=== PATIENT | male | born 2000 | race American Indian/Alaskan Native ===

== ENCOUNTER 2018-02-18 13:03 | Emergency (ER) | payer SELFPAY ==
--- NOTE | 2018-02-18 13:54 | Emergency Department Report ---
ED ENT HPI - General Chief complaint: Earache Stated complaint: EAR PAIN Time Seen by Provider: 02/18/18 13:42 Source: patient Mode of arrival: Ambulatory Limitations: No Limitations - History of Present Illness Initial comments: This is a 17-year-old male brought by mother nontoxic, well nourished in appearance, no acute signs of distress presents to the ED with c/o of left earache x3 weeks. Patient denies any ear drainage. Patient denies any trauma to the area. Patient denies any mastoid tenderness or tragus tenderness. Patient denies hearing decrease or hearing changes. Patient denies any fever, chills, nausea, vomiting, chest pain, short of breath, headache or stiff neck. Patient denies any drug allergies or significant past medical history. MD complaint: ear pain -: week(s) (3) Location: L ear Severity: mild Severity scale (0 -10): 8 Quality: aching Consistency: constant Improves with: none Worsens with: none Associated Symptoms: denies: fever, cough, gum swelling, toothache, pain with swallowing, sore throat, tinnitus, hearing loss, discharge from ear, rhinorrhea - Related Data Previous Rx's Medication Instructions Recorded Last Taken Type Amoxicillin [Amoxicillin TAB] 875 mg PO BID #20 tablet 02/18/18 Unknown Rx ED Dental HPI - General Chief complaint: Earache Stated complaint: EAR PAIN Time Seen by Provider: 02/18/18 13:42 Source: patient Mode of arrival: Ambulatory Limitations: No Limitations - Related Data Previous Rx's Medication Instructions Recorded Last Taken Type Amoxicillin [Amoxicillin TAB] 875 mg PO BID #20 tablet 02/18/18 Unknown Rx ED Review of Systems ROS: Stated complaint: EAR PAIN Other details as noted in HPI Constitutional: denies: chills, fever Eyes: denies: eye pain, eye discharge, vision change ENT: ear pain. denies: throat pain Respiratory: denies: cough, shortness of breath, wheezing Cardiovascular: denies: chest pain, palpitations Endocrine: no symptoms reported Gastrointestinal: denies: abdominal pain, nausea, diarrhea Genitourinary: denies: urgency, dysuria Musculoskeletal: denies: back pain, joint swelling, arthralgia Skin: denies: rash, lesions Neurological: denies: headache, weakness, paresthesias Psychiatric: denies: anxiety, depression Hematological/Lymphatic: denies: easy bleeding, easy bruising ED Past Medical Hx - Past Medical History Previous Medical History?: No - Surgical History Past Surgical History?: No - Social History Smoking Status: Never Smoker Substance Use Type: None - Medications Home Medications: Home Medications Medication Instructions Recorded Confirmed Last Taken Type Amoxicillin [Amoxicillin TAB] 875 mg PO BID #20 tablet 02/18/18 Unknown Rx ED Physical Exam - General Limitations: No Limitations General appearance: alert, in no apparent distress - Head Head exam: Present: atraumatic, normocephalic - Expanded ENT Exam Expanded Ear exam: Present: normal external inspection TM/Canal exam: Erythema: Left TM, Bulging: Left TM Mouth exam: Present: normal external inspection Teeth exam: Present: normal inspection Throat exam: Positive: normal inspection - Neck Neck exam: Present: normal inspection, full ROM. Absent: tenderness, meningismus, lymphadenopathy - Extremities Exam Extremities exam: Present: normal inspection, full ROM - Back Exam Back exam: Present: normal inspection, full ROM - Neurological Exam Neurological exam: Present: alert, oriented X3 - Psychiatric Psychiatric exam: Present: normal affect, normal mood - Skin Skin exam: Present: warm, dry, intact, normal color. Absent: rash ED Course Vital Signs 02/18/18 13:28 Temperature 98.6 F Pulse Rate 49 L Respiratory 16 Rate Blood Pressure 129/61 O2 Sat by Pulse 98 Oximetry - Reevaluation(s) Reevaluation #1: 02/18/18 13:52 Patient is speaking in full sentences with no signs of distress noted. Critical care attestation.: If time is entered above; I have spent that time in minutes in the direct care of this critically ill patient, excluding procedure time. ED Disposition Clinical Impression: Left otitis media Qualifiers: Otitis media type: unspecified Qualified Code(s): H66.92 - Otitis media, unspecified, left ear Disposition: DC-01 TO HOME OR SELFCARE Is pt being admited?: No Does the pt Need Aspirin: No Condition: Stable Instructions: Otitis Media (ED) Additional Instructions: Follow-up with a primary care doctor in 3-5 days or if symptoms worsen and continue return to emergency room as soon as possible. Prescriptions: Amoxicillin [Amoxicillin TAB] 875 mg PO BID #20 tablet Referrals: JESSICA BENNETT MD [Primary Care Provider] - 3-5 Days PARMINDER VEGA MD [Staff Physician] - 3-5 Days [facility] [Outside] - 3-5 Days [facility] [Outside] - 3-5 Days Forms: Work/School Release Form(ED)
== END 2018-02-18 14:26 | disposition home or self-care (01) ==
LOC: ED 13:03
DX: H66.92 Otitis media, unspecified, left ear (principal)
CPT/HCPCS: 99282

== ENCOUNTER 2018-10-26 12:45 | Emergency (ER) | payer SELFPAY ==
[2018-10-26 14:46] VITALS: BP 109/49
--- NOTE | 2018-10-26 14:48 | Event Note ---
ED Screening Note ED Screening Note: pt presents with lump to the left groin that began last week denies any pain no PCP no n/v/d, fever, no testicular pain or edema, no abd pain no symptoms at all states he does heavy lifting no PMHx no allergies to meds will d/c from triage
--- NOTE | 2018-10-26 14:50 | Emergency Department Report ---
ED General Adult HPI - General Chief complaint: Extremity Injury, Lower Stated complaint: LYMPH NODES/HERNIA PAIN Time Seen by Provider: 10/26/18 14:44 Source: patient Mode of arrival: Ambulatory Limitations: No Limitations - History of Present Illness Initial comments: pt is a 18 yo male who presents to the ED with lump to the left groin that began last week. he denies any pain. pt does not have a primary care provider. he denies any n/v/d, fever, no testicular pain or edema, no abd pain. no symptoms at all. pt states he does heavy lifting. he denies any PMHx. no allergies to meds. - Related Data Previous Rx's Medication Instructions Recorded Last Taken Type Amoxicillin [Amoxicillin TAB] 875 mg PO BID #20 tablet 02/18/18 Unknown Rx Allergies Allergy/AdvReac Type Severity Reaction Status Date / Time No Known Allergies Allergy Unverified 10/26/18 12:47 ED Review of Systems ROS: Stated complaint: LYMPH NODES/HERNIA PAIN Other details as noted in HPI Comment: All other systems reviewed and negative ED Past Medical Hx - Past Medical History Previous Medical History?: No - Surgical History Past Surgical History?: No - Social History Smoking Status: Never Smoker Substance Use Type: None - Medications Home Medications: Home Medications Medication Instructions Recorded Confirmed Last Taken Type Amoxicillin [Amoxicillin TAB] 875 mg PO BID #20 tablet 02/18/18 Unknown Rx ED Physical Exam - General Limitations: No Limitations General appearance: alert, in no apparent distress - Head Head exam: Present: atraumatic, normocephalic - Eye Eye exam: Present: normal appearance - ENT ENT exam: Present: mucous membranes moist - exam: Present: other (very small left inguinal hernia, only visible upon coughing, no strangulation, switch cleaner: АННА valdez) - Neurological Exam Neurological exam: Present: alert, oriented X3 - Psychiatric Psychiatric exam: Present: normal affect, normal mood - Skin Skin exam: Present: warm, dry, intact ED Course Vital Signs 10/26/18 14:45 Temperature 97.7 F Pulse Rate 46 L Respiratory 16 Rate Blood Pressure 109/49 O2 Sat by Pulse 100 Oximetry ED Medical Decision Making - Medical Decision Making pt is a 18 yo male who presents to the ED with lump to the left groin that began last week. he denies any pain. pt does not have a primary care provider. he denies any n/v/d, fever, no testicular pain or edema, no abd pain. no symptoms at all. pt states he does heavy lifting. he denies any PMHx. no allergies to meds. on exam: very small left inguinal hernia, only visible upon coughing, no strangulation, switch cleaner: АННА valdez. advised pt to please follow up with a primary care doctor in the next 2-3 days. may follow up with general surgery as needed if feel like not improving or worsening. return to the emergency room for any new or worsening symptoms. Critical care attestation.: If time is entered above; I have spent that time in minutes in the direct care of this critically ill patient, excluding procedure time. ED Disposition Clinical Impression: Left inguinal hernia Disposition: MED SCREENING EXAM-LEFT Is pt being admited?: No Does the pt Need Aspirin: No Condition: Stable Instructions: Inguinal Hernia (ED) Additional Instructions: please follow up with a primary care doctor in the next 2-3 days. may follow up with general surgery as needed if feel like not improving or worsening. return to the emergency room for any new or worsening symptoms. Referrals: GABRIELA CRAFT MD [Staff Physician] - as needed [facility] [Provider Group] - 2-3 Days [facility] [Outside] - 2-3 Days [facility] [Outside] - 2-3 Days Time of Disposition: 14:50 Print Language: MACEDONIAN
== END 2018-10-26 15:40 | disposition left against medical advice (07) ==
LOC: ED 12:45
DX: K40.90 Unilateral inguinal hernia, without obstruction or gangrene, not specified as recurrent (principal); Z79.899 Other long term (current) drug therapy
CPT/HCPCS: 99281